=== PATIENT | female | born 2000 | race Caucasian/White ===

== ENCOUNTER 2020-03-05 23:40 | Emergency (ER) | payer BC, OTHER ==
--- NOTE | 2020-03-05 23:50 | EDM.PDOC ---
ED HPI GENERAL MEDICAL PROBLEM - General Chief Complaint: Headache Stated Complaint: HEADACHES Time Seen by Provider: 03/05/20 23:50 Source of Information: Reports: Patient History Limitations: Reports: No Limitations - History of Present Illness INITIAL COMMENTS - FREE TEXT/NARRATIVE: Patient is complaining of headache which started medially earlier today and now spread to the left side of her head. Patient has occasional migraines but does not get them regularly but rates this is 9 out of 10. Patient was vomiting at home. She denies any sinus pressure or dental pain. She denies any change in her vision or hearing. She denies any difference with moving her neck. Is taken some ibuprofen without relief. Onset: Today Duration: Getting Worse Location: Reports: Head, Face Quality: Reports: Ache, Pressure Severity: Severe Improves with: Reports: None Worsens with: Reports: None Headache Pain Score (Numeric/FACES): 9 - Related Data Allergies Allergy/AdvReac Type Severity Reaction Status Date / Time contact metal agent Allergy Rash Verified 03/06/20 00:07 Home Meds: Home Meds Acetaminophen/HYDROcodone [Provo 325-5 MG] 1 tab PO Q6H PRN #10 tablet 03/06/20 [Rx] Ondansetron [Zofran ODT] 4 mg PO Q6H PRN #10 tab.dis 03/06/20 [Rx] ED ROS GENERAL - Review of Systems Review Of Systems: Comprehensive ROS is negative, except as noted in HPI. - Physical Exam Exam: See Below General Appearance: Alert, No Apparent Distress Nose: Normal Inspection Head Exam: Atraumatic, Normocephalic Neck: Normal Inspection, Supple, Non-Tender, Full Range of Motion Respiratory/Chest: No Respiratory Distress, Lungs Clear, Normal Breath Sounds, No Accessory Muscle Use Cardiovascular: Regular Rate, Rhythm, No JVD GI/Abdominal: Normal Bowel Sounds, Soft, Non-Tender Neuro Exam (Abbreviated): Alert, Oriented, CN II-XII Intact, Normal Cognition Back Exam: Normal Inspection Extremities: Normal Inspection Psychiatric: Normal Affect Skin Exam: Warm, Dry Course - Vital Signs Text/Narrative:: Patient was given 6 mg Imitrex subcu which completely got rid of her headache. She is still currently feeling mildly nauseous. We will give her Zofran ODT here and I will give her a prescription for additional and some Provo if she needs it. She is instructed to increase her fluid intake and take ibuprofen with meals. She may return to ER if worse follow-up with PCP if symptoms continue. Last Recorded V/S: Last Vital Signs Temp 36.3 C 03/05/20 23:59 Pulse 79 03/05/20 23:59 Resp 18 03/05/20 23:59 BP 127/88 03/05/20 23:59 Pulse Ox 98 03/05/20 23:59 - Orders/Labs/Meds Meds: Medications Discontinued Medications Generic Name Dose Route Start Last Admin Trade Name Darrian PRN Reason Stop Dose Admin Sumatriptan Succinate 6 mg 03/06/20 00:09 03/06/20 00:21 Imitrex SUBCUT 03/06/20 00:10 6 mg ONETIME ONE Administration Departure - Departure Time of Disposition: 00:49 Disposition: Home, Self-Care 01 Condition: Good Clinical Impression: Migraine - Discharge Information Instructions: Migraine Headache, [id number] Referrals: PCP,None [Primary Care Provider] - Forms: ED Department Discharge Additional Instructions: Increase fluids. Ibuprofen with meals. Return to ER if worse. Zofran and Provo if needed. See PCP if symptoms continue. Care Plan Goals: The following information is given to patients seen in the emergency department who are being discharged to home. This information is to outline your options for follow-up care. We provide all patients seen in our emergency department with a follow-up referral. The need for follow-up, as well as the timing and circumstances, are variable depending upon the specifics of your emergency department visit. If you don't have a primary care physician on staff, we will provide you with a referral. We always advise you to contact your personal physician following an emergency department visit to inform them of the circumstance of the visit and for follow-up with them and/or the need for any referrals to a consulting specialist. The emergency department will also refer you to a specialist when appropriate. This referral assures that you have the opportunity for follow-up care with a specialist. All of these measure are taken in an effort to provide you with optimal care, which includes your follow-up. Under all circumstances we always encourage you to contact your private physician who remains a resource for coordinating your care. When calling for follow-up care, please make the office aware that this follow-up is from your recent emergency room visit. If for any reason you are refused follow-up, please contact the [facility] Emergency Department at and asked to speak to the emergency department charge nurse. Sepsis Event Note - Focused Exam Vital Signs: Vital Signs Temp Pulse Resp BP Pulse Ox 03/05/20 23:59 36.3 C 79 18 127/88 98 Date Exam was Performed: 03/06/20 Time Exam was Performed: 00:47
[2020-03-06] MEDS ORDERED: SUMAtriptan 6 MG/0.5 ML SDV SUBCUT ONE (00:09)
[2020-03-06] MEDS ORDERED: Ondansetron 4 MG Tab.DIS PO ONE (00:49)
== END 2020-03-06 01:00 | disposition home or self-care (01) ==
LOC: MW.ED 23:40
DX: G43.909 Migraine, unspecified, not intractable, without status migrainosus (principal); Z91.048 Other nonmedicinal substance allergy status
CPT/HCPCS: 96372; 99283; A9270; J3030